=== PATIENT | male | born 1945 | race Caucasian/White ===

== ENCOUNTER 2017-03-21 13:14 | Emergency (ER) ==
[2017-03-21 13:18] VITALS: BP 170/89; TEMP 97.8; BMI 39.3
--- NOTE | 2017-03-21 13:43 | DI ---
EXAM: Three views of the right foot HISTORY: Fall. COMPARISON: Right ankle x-rays same day FINDINGS: No cortical irregularity or displaced fracture of the right foot is identified. The joint spaces are maintained. The arch is maintained. Calcaneus demonstrates small spurs. There is soft tissue swelling present. IMPRESSION: Soft tissue swelling of the right foot with no displaced fracture or dislocation.
--- NOTE | 2017-03-21 13:43 | DI ---
EXAM: Three views of the right ankle HISTORY: Fall. COMPARISON: Foot x-rays same day FINDINGS: There is no cortical irregularity or displaced fracture of the right distal fibular tibia. There is soft tissue swelling of the right ankle. The joint space is maintained. No lytic or christel tic lesion is identified. The osseous structures in the hind foot are unremarkable. IMPRESSION: Soft tissue swelling and no displaced fracture or dislocation of the right ankle.
--- NOTE | 2017-03-21 13:50 | ED.PDOC ---
General ED Provider: Dr. DARON DUVAL-ER Chief Complaint: Ankle Pain/Injury Stated Complaint: i fell a few days ago and my ankle has been swollen since Time Seen by Physician: 13:15 Mode of Arrival: Ambulance Information Source: Patient Exam Limitations: No limitations Nursing and Triage Documentation Reviewed and Agree: Yes Musculoskeletal Complaint Exam - Ankle/Foot Complaint/Exam Location of Injury: Reports: Right, Ankle, Foot Mechanism of Injury: Reports: Trauma Onset/Duration: 3 days Symptoms Are: Reports: Still present Onset of Pain: Reports: Immediate Initial Severity: Mild Current Severity: Mild Location: Reports: Discrete Character: Reports: Dull, Aching Aggravating: Reports: Movement, Weight bearing, Prolonged standing Able to Bear Weight: Yes Associated Signs and Symptoms: Reports: Swelling, Bruising Lower Extremity Findings: Present: Swelling, Ecchymosis, Tenderness, Limited range of motion Achilles Tendon Abnormality: No Tenderness: Present: Medial malleolus Limited Range of Motion: Present: Inversion, Eversion, Dorsiflexion Differential Diagnosis: Closed Fracture, Sprain, Strain Review of Systems - Review Of Systems Constitutional: Reports: No symptoms Eyes: Reports: No symptoms Ears, Nose, Mouth, Throat: Reports: No symptoms Respiratory: Reports: No symptoms Cardiac: Reports: No symptoms GI: Reports: No symptoms : Reports: No symptoms Musculoskeletal: Reports: Joint pain, Joint swelling Skin: Reports: No symptoms Neurological: Reports: No symptoms Endocrine: Reports: No symptoms Hematologic/Lymphatic: Reports: No symptoms All Other Systems: Reviewed and Negative Past Medical History - Past Medical History Previously Healthy: No Endocrine: Reports: Unknown Cardiovascular: Reports: Unknown Respiratory: Reports: Unknown Hematological: Reports: Unknown Gastrointestinal: Reports: Unknown Genitourinary: Reports: Unknown Neuro/Psych: Reports: Unknown Musculoskeletal: Reports: Unknown Cancer: Reports: Unknown - Surgical History General Surgical History: Reports: Unknown - Family History Family History: Reports: Unknown - Social History Smoking Status: Current every day smoker Hx Substance Use: No Alcohol Screening: None Lives: With family Physical Exam - Physical Exam Appearance: Well-appearing, No pain distress, Well-nourished Pain Distress: Mild Eyes: SERJIO, EOMI, Conjunctiva clear ENT: Ears normal, Nose normal, Oropharynx normal Neck: Supple Respiratory: Airway patent Cardiovascular: RRR GI/: Soft, Nontender, No masses, Bowel sounds normal, No Organomegaly Musculoskeletal: Limited ROM Skin: Warm, Dry, Normal color Neurological: Sensation intact, Motor intact, Reflexes intact, Cranial nerves intact, Alert, Oriented Psychiatric: Affect appropriate, Mood appropriate Interpretation - Radiology Interpretation Radiology Results: Negative Critical Care Note - Critical Care Note Total Time (mins): 0 Course - Course Orders, Labs, Meds: Orders Category Date Time Status ANKLE, RIGHT MIN 3 VIEWS Stat RADS 03/21/17 13:16 Completed FOOT, RIGHT 3 VIEWS Stat RADS 03/21/17 13:16 Completed Vital Signs: Temp Pulse Resp BP Pulse Ox 03/21/17 13:14 97.8 F 72 20 170/89 H 97 Departure - Departure Time of Disposition: 13:50 Disposition: HOME SELF-CARE Discharge Problem: Ankle pain Instructions: Ankle Sprain (ED) Condition: Good Pt referred to PMD for follow-up: Yes Additional Instructions: stay in splint==use your pain meds--f/u with pcp Allergies/Adverse Reactions: Allergies No Known Allergies Allergy (Unverified 03/21/17 13:19) Disposition Discussed With: Patient
== END 2017-03-21 14:53 | disposition home or self-care (01) ==
LOC: ED 13:14
DX: M25.571 Pain in right ankle and joints of right foot (principal); W19.XXXA Unspecified fall, initial encounter; F17.210 Nicotine dependence, cigarettes, uncomplicated
CPT/HCPCS: 99283

== ENCOUNTER 2018-11-25 15:28 | Emergency (ER) ==
[2018-11-25 15:28] VITALS: BMI 39.3
[2018-11-25 15:32] VITALS: BP 155/76; TEMP 99.4
--- NOTE | 2018-11-25 16:52 | CT ---
EXAM: CT lumbar spine without contrast HISTORY: Left flank and low back pain COMPARISON: None TECHNIQUE: CT lumbar spine performed without intravenous contrast. Coronal and sagittal reformatted images obtained. FINDINGS: Vertebral bodies normal in height. Multilevel marginal osteophyte formation. Minimal mary tral compression fracture deformities T11 and T12, age indeterminate. Minimal central concavity of t he lumbar vertebral bodies with chronic features. Vertebral bodies no subluxation. Sacroiliac joint s intact with mild degenerative change. Unilateral pars defect on the right at L1. T11-T12: No central canal or neural foraminal narrowing. T12-L1: Posterior disc osteophyte complex and facet arthrosis causing mild bilateral neural foramina l narrowing. L1-L2: Posterior disc osteophyte complex and facet arthrosis causing mild left neural foraminal narr owing. L2-L3: No central canal or neural foraminal narrowing. L3-L4: Posterior disc osteophyte complex and facet arthrosis causing mild central canal and mild to moderate bilateral neural foraminal narrowing. L4-L5: Posterior disc osteophyte complex and facet arthrosis causing mild central canal and mild to moderate bilateral neural foraminal narrowing. L5-S1: Posterior disc osteophyte complex and facet arthrosis causing moderate right and mild left sandy ral foraminal narrowing. Please refer to separate report CT abdomen pelvis regarding findings in the abdomen, noting an infrar enal abdominal aortic aneurysm that is incompletely imaged and approximating 4.0 cm. IMPRESSION: 1. Minimal central compression fracture deformities T11 and T12, age indeterminate. Minimal central concavity of the lumbar vertebral bodies with chronic features. 2. Chronic discogenic degenerative disease and facet arthrosis. Please see segmental analysis. 3. Unilateral pars defect on the right at L1. 4. Please refer to separate report CT abdomen pelvis regarding findings in the abdomen, noting an in frarenal abdominal aortic aneurysm that is incompletely imaged and approximating 4.0 cm.
--- NOTE | 2018-11-25 16:53 | CT ---
EXAM: CT ABDOMEN AND PELVIS HISTORY: Lower abdominal pain after fall TECHNIQUE: CT abdomen and pelvis without intravenous contrast. Images were reconstructed using 5 mm section thickness. Reformations were prepared. COMPARISON: None FINDINGS: Diagnostic limitations may exist without including contrast enhanced images. Tiny 9 mm low attenuati on lesion of the mid right hepatic lobe, possible cyst. Spleen is within normal limits. Gallbladder and pancreas appear normal. Normal adrenal glands. Scattered calcifications within the kidneys may represent renal calculi or vascular calcifications largest measuring about 6 mm. There is no hydron ephrosis or evidence of ureteral obstruction. There is severe atherosclerotic disease. Fusiform ane urysmal caliber of the infrarenal aorta measures 4 cm. The aorta is ectatic extending toward the pos terior left lung base. There is aneurysmal caliber of at least the right common iliac artery at 2 cm . Nonspecific scattered periaortic lymph nodes without obvious pathologic enlargement. The stomach is within normal limits. Normal appendix. Nonobstructive bowel gas pattern. Urinary bladder is intact. Mild prostate enlargement. There is no ascites. Mild deformities of the lower thoracic vertebral bodies of indeterminate age. See also same day CT lumbar spine report. Selam g bases reveal minimal atelectasis. No pneumoperitoneum is seen. IMPRESSION: 1. Severe atherosclerosis. Aneurysmal caliber of the infrarenal aorta at 4 cm. 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 2. Tiny liver lesion, possible cyst. 3. Mild prostate enlargement. 4. See also same day CT lumbar spine report.
--- NOTE | 2018-11-25 17:04 | ED.PDOC ---
General ED Provider: Dr. GERRY CARBONE Chief Complaint: Back Pain Stated Complaint: back pain lower abdominal pain after a fall 1 day ago no neck injury no neck pain Time Seen by Physician: 15:30 (seen with nurse at all times ) Mode of Arrival: Ambulance Information Source: Patient, EMT Exam Limitations: No limitations Primary Care Provider: KAYLA FAJARDO Nursing and Triage Documentation Reviewed and Agree: Yes Does patient meet sepsis criteria?: No If yes, has appropriate treatment been initiated?: No System Inflammatory Response Syndrome: Not Applicable Sepsis Protocol: For patient's 13 years and over: Temp is 96.8 and below OR 101 and greater Pulse >90 BPM Resp >20/minute Acutely Altered Mental Status Are patient's symptoms suggestive of a new infection, such as: -Pneumonia -Skin, Soft Tissue -Endocarditis -UTI -Bone, Joint Infection -Implantable Device -Acute Abdominal Infection -Wound Infection -Meningitis -Blood Stream Catheter Infection -Unknown Trauma/Injury Complaint Exam - Trauma Complaint/Exam Location of Pain or Injury: Reports: Abdomen, Back Mechanism of Injury: Reports: Fall Onset/Duration: 1 day ago Symptoms Are: Still present Timing of Treatment: Delayed Initial Severity: Mild Current Severity: Mild Character: Reports: Aching Aggravating: Reports: None Alleviating: Reports: None Associated Signs and Symptoms: Denies: LOC, Confusion, Memory loss, Lethargy, Vomiting, Bleeding, Bruising, Swelling, Extremity disuse, Painful respiration, Hoarseness, Dysphagia, Hemoptysis, Significant blood loss Glascow Coma Scale (see protocol): 15 no neuro deficits noted motor or sensory, bowel or bladder dysfunction Trauma Findings: Absent: [place] eyes, Hemotympanum, Nasal deformity, Dental tenderness, Dental injury, Dental malocclusion, Neck tenderness, Neck spasm, Crepitus, Airway obstructed, Trachea displaced, Labored respirations, Decreased breath sounds, Muffled heart sounds, Weak pulses, Absent pulses, Pelvic instability Skin Findings: Present: Normal findings Differential Diagnoses: Fracture, Sprain, Strain Review of Systems - Review Of Systems Constitutional: Reports: No symptoms Eyes: Reports: No symptoms Ears, Nose, Mouth, Throat: Reports: No symptoms Respiratory: Reports: No symptoms Cardiac: Reports: No symptoms GI: Reports: Abdominal pain (dull negative n,v,) : Reports: No symptoms Musculoskeletal: Reports: Other (low back pain) Skin: Reports: No symptoms Neurological: Reports: No symptoms Endocrine: Reports: No symptoms Hematologic/Lymphatic: Reports: No symptoms All Other Systems: Reviewed and Negative Past Medical History - Past Medical History Previously Healthy: No Endocrine: Reports: Unknown Cardiovascular: Reports: Unknown Respiratory: Reports: Unknown Hematological: Reports: Unknown Gastrointestinal: Reports: Unknown Genitourinary: Reports: Unknown Neuro/Psych: Reports: Unknown Musculoskeletal: Reports: Unknown Cancer: Reports: Unknown - Surgical History General Surgical History: Reports: Unknown - Family History Family History: Reports: Unknown - Social History Smoking Status: Current every day smoker Hx Substance Use: No Alcohol Screening: None Physical Exam - Physical Exam Appearance: Well-appearing, No pain distress, Well-nourished Eyes: SERJIO, EOMI, Conjunctiva clear ENT: Ears normal, Nose normal, Oropharynx normal Respiratory: Airway patent, Breath sounds clear, Breath sounds equal, Respirations nonlabored Cardiovascular: RRR, Pulses normal, No rub, No murmur GI/: Soft, Nontender, No masses, Bowel sounds normal, No Organomegaly Musculoskeletal: Normal strength (palpation of entire spine did not elecit any paun ) Skin: Warm, Dry, Normal color Neurological: Sensation intact, Motor intact, Reflexes intact, Cranial nerves intact, Alert, Oriented Psychiatric: Affect appropriate, Mood appropriate Interpretation - Radiology Interpretation Radiology Interpretation By: Radiologist Radiology Results: Positive (common iliac aneurysm, AAA4CM PROSTATE ENLARGMENT MINIMAL FRACTURE OF T11, T12 PARS DEFECT L1) Critical Care Note - Critical Care Note Total Time (mins): 0 Course - Course Orders, Labs, Meds: Orders Category Date Time Status CT ABDOMEN/PELVIS WO CONTRAST Stat RADS 11/25/18 15:[address] LUMBAR SPINE W/O CONTRAST Stat RADS 11/25/18 15:56 Completed Vital Signs: Temp Pulse Resp BP Pulse Ox 11/25/18 15:29 99.4 F 72 20 155/76 H 91 L Departure - Departure Time of Disposition: 17:06 Disposition: HOME SELF-CARE Discharge Problem: AAA (abdominal aortic aneurysm), Iliac aneurysm, Compression fracture of T11 vertebra, Compression fracture of T12 vertebra, Pars defect of lumbar spine, Enlarged prostate Instructions: Back Pain (ED) Condition: Good Pt referred to PMD for follow-up: Yes IPMP verified?: No Additional Instructions: Please call your Family Physician as soon as possible to schedule a follow-up appointment. YOUR BACK IS SHOWING A BREAK IT IS A MINOR ONE IN NATURE BUT IT WILL HURT, YOU MUST SEE YOUR DOCTOR TAKE THESE REPORTS TO HIS OFFICE. YOU HAVE A CONDITION CALLED ANEURYSM OF ABDOMINAL AORTA THIS IS A SERIOUS AND EVEN A KIND OF CONSHITION IF IGNORE IT CAN KILL YOU . YOUR PROSTATE IS ALSO ENLARGED Allergies/Adverse Reactions: Allergies No Known Allergies Allergy (Verified 11/25/18 15:32) Home Medications: Ambulatory Orders Amlodipine Besylate 10 mg PO BEDTIME 11/25/18 Aspirin [Yazmin Chewable] 81 mg PO DAILY 11/25/18 Escitalopram Oxalate 20 mg PO BEDTIME 11/25/18 Furosemide 20 mg PO DAILY 11/25/18 Gabapentin 300 mg PO BID 11/25/18 Hydrocodone/Acetaminophen [Hydrocodon-Acetaminophn 10325] 1 each PO TID Levothyroxine Sodium 50 mcg PO BEDTIME 11/25/18 Levothyroxine Sodium 200 mcg PO DAILY 11/25/18 Lisinopril 20 mg PO BEDTIME 11/25/18 Metformin HCl 500 mg PO BID 11/25/18 Potassium Chloride 10 meq PO BEDTIME 11/25/18 Tamsulosin HCl [Flomax] 0.4 mg PO DAILY 11/25/18 Disposition Discussed With: Patient
[2018-11-25] MEDS ORDERED: NORCO 10-325 PO STA (17:25)
== END 2018-11-25 19:39 | disposition home or self-care (01) ==
LOC: ED 15:28
DX: I71.4 Abdominal aortic aneurysm, without rupture (principal); I72.3 Aneurysm of iliac artery; S22.080A Wedge compression fracture of T11-T12 vertebra, initial encounter for closed fracture; N40.0 Benign prostatic hyperplasia without lower urinary tract symptoms; M43.06 Spondylolysis, lumbar region; W19.XXXA Unspecified fall, initial encounter; F17.210 Nicotine dependence, cigarettes, uncomplicated; Z79.899 Other long term (current) drug therapy
CPT/HCPCS: 99283